=== PATIENT | female | born 1985 | race Caucasian/White ===

== ENCOUNTER → 2021-12-26 | Outpatient (REF) | LOC: M RAD 16:12 | PROVIDERS: ATTEND Nurse Practitioner Family | DX: M25.519 Pain in unspecified shoulder (principal); M25.559 Pain in unspecified hip ==

== ENCOUNTER → 2022-04-08 | Outpatient (CLI) | payer OTHER | LOC: M LAB 09:51 | PROVIDERS: ATTEND Allergy & Immunology | DX: J30.89 Other allergic rhinitis (principal) ==